=== PATIENT | female | born 1925 | race Caucasian/White ===

== ENCOUNTER → 2017-03-26 | Outpatient (CLI) | payer OTHER ==
[~2017-03-26] MED LIST: ACET325 PO; ALBU90OI INH; ALLO300; ALLO300 PO; AZIT250 PO; CIPR500 PO; CITA20; CITA20 PO; DULERA 200 MCG/13 GM INH; ESCI10; FEXO60; FURO20; LOSA50 PO; OMEP20ER; ONDA4ODT MM; POTCHL10ER; Synthroid25 MCG; TOLT4 PO; TRIHYD253A PO; Toprol Xl50 MG PO
== END | disposition home or self-care (01) ==
LOC: LAB SHORT 13:47
DX: N39.0 Urinary tract infection, site not specified (principal)
CPT/HCPCS: 87086

== ENCOUNTER 2017-04-23 01:00 | Day surgery (SDC) | payer OTHER ==
[2017-04-23 12:33] LABS: Source, Urine Catheter
[2017-04-23 12:35] LABS: Bilirubin, Urine Neg (Neg); Blood, Urine Neg (Neg); Glucose Qualitative, Urine Neg (Neg); Ketones, Urine Neg (Neg); Leukocyte Esterase, Urine Neg (Neg); Nitrite, Urine Neg (Neg); Protein, Urine Neg (Neg); Urobilinogen, Urine NORM (Normal)
[2017-04-23 12:40] LABS: Appearance, Urine Clear (Clear); Color, Urine Yellow (P-Yellow)
== END 2017-04-23 11:45 | disposition home or self-care (01) ==
LOC: ATC 01:00
PROVIDERS: Internal Medicine
DX: R35.0 Frequency of micturition (principal); I10 Essential (primary) hypertension; T85.43XA Leakage of breast prosthesis and implant, initial encounter; Z92.3 Personal history of irradiation; Z85.3 Personal history of malignant neoplasm of breast; Z88.0 Allergy status to penicillin; Z88.1 Allergy status to other antibiotic agents; Z88.8 Allergy status to other drugs, medicaments and biological substances; Z79.899 Other long term (current) drug therapy; Z87.891 Personal history of nicotine dependence
CPT/HCPCS: 81003; P9612

== ENCOUNTER → 2017-07-06 | Outpatient (CLI) | payer OTHER | LOC: LAB 14:14 → LAB SHORT 14:14 | PROVIDERS: Physician Assistant | DX: N39.0 Urinary tract infection, site not specified (principal) | CPT/HCPCS: 87109 ==

== ENCOUNTER → 2017-08-27 | Outpatient (CLI) | payer OTHER ==
[2017-08-27 12:41] LABS: Source, Urine Clean Catch
[2017-08-27 13:57] LABS: Bilirubin, Urine Neg (Neg); Blood, Urine 1+ (Neg); Glucose Qualitative, Urine Neg (Neg); Ketones, Urine Neg (Neg); Leukocyte Esterase, Urine 2+ (Neg); Nitrite, Urine Neg (Neg); Protein, Urine 1+ (Neg); Urobilinogen, Urine NORM (Normal)
[2017-08-27 14:07] LABS: Appearance, Urine Clear (Clear); Color, Urine Yellow (P-Yellow)
[2017-08-27 14:09] LABS: Bacteria Few /hpf; Squamous Epithelial Cells Few /hpf (Few)
== END | disposition home or self-care (01) ==
LOC: LAB SHORT 12:38 → OLS 12:38
PROVIDERS: Physician Assistant
DX: R30.9 Painful micturition, unspecified (principal); R35.0 Frequency of micturition
CPT/HCPCS: 81001; 87086